=== PATIENT | female | born 1955 | race Caucasian/White ===

== ENCOUNTER → 2020-06-04 | Emergency (ER) | payer OTHER ==
[~2020-06-04] VITALS: Ht 167 cm; Wt 99.7 kg
[2020-06-04 16:40] VITALS: BP 129/57
[2020-06-04 17:04] LABS: BASOPHILS % (AUTO) 0 % (0-10); EOSINOPHILS % (AUTO) 1 % (0-10); HEMATOCRIT 42 % (35-52); HEMOGLOBIN 14.2 g/dL (11.5-16.0); LYMPHOCYTES # (AUTO) 3.6 10^3/uL (1.0-4.0); LYMPHOCYTES % (AUTO) 43 % (12-44); MEAN CORPUSCULAR HEMOGLOBIN 29 pg (25-34); MEAN CORPUSCULAR HGB CONC 34 g/dL (32-36); MEAN CORPUSCULAR VOLUME 87 fL (80-99); MEAN PLATELET VOLUME 11.1 fL (9.0-12.2); MONOCYTES % (AUTO) 11 % (0-12); NEUTROPHILS # (AUTO) 3.7 10^3/uL (1.8-7.8); NEUTROPHILS % (AUTO) 44 % (42-75); PLATELET COUNT 252 10^3/uL (130-400); WHITE BLOOD COUNT 8.3 10^3/uL (4.3-11.0)
[2020-06-04 17:12] LABS: CHLORIDE 101 MMOL/L (98-107); POTASSIUM 3.6 MMOL/L (3.6-5.0); SODIUM 135 MMOL/L (135-145)
[2020-06-04 17:13] LABS: CALCIUM 8.9 MG/DL (8.5-10.1)
[2020-06-04 17:15] LABS: GLUCOSE 93 MG/DL (70-105); TOTAL PROTEIN 7.4 GM/DL (6.4-8.2)
[2020-06-04 17:16] LABS: BILIRUBIN,TOTAL 0.4 MG/DL (0.1-1.0); CARBON DIOXIDE 24 MMOL/L (21-32)
[2020-06-04 17:18] LABS: ALKALINE PHOSPHATASE 62 U/L (40-136); GFR ESTIMATED > 60
[2020-06-04 17:19] LABS: BUN/CREATININE RATIO 18
[2020-06-04 17:21] LABS: ALANINE AMINOTRANSFERASE 19 U/L (0-55)
--- NOTE | 2020-06-04 17:31 | Diagnostic Imaging Report ---
INDICATION: COVID positive and labored breathing. Time of exam: 5:08 PM Correlation is made with prior chest from 03/12/2010. The heart size is normal. The pulmonary vascularity is unremarkable. The lungs are clear. No infiltrate, effusion or pneumothorax is detected. IMPRESSION: No acute cardiopulmonary process is detected. Dictated by: Dictated on workstation # [id number]
--- NOTE | 2020-06-04 18:29 | ED General ---
General Chief Complaint: Respiratory Problems Stated Complaint: LOW O2/FEVER/COVID + Nursing Triage Note: patient states covid positive since 05/25/2020. labored breathing with ambulation to room. patient states she tested oxygen at home, low oxygen reading at times. Nursing Sepsis Screen: No Definite Risk Source of Information: Patient Exam Limitations: No Limitations History of Present Illness Date Seen by Provider: Jun 04, 2020 Time Seen by Provider: 16:50 Initial Comments This 64-year-old woman with known COVID-19 presents to the emergency room with shortness of breath and reports of hypoxic measurements with her pulse oximeter at home. She became ill on May 23 and tested positive for COVID-19 on May 25. She has been self-monitoring her oxygen saturations and found levels in the upper 80s. She reports these always quickly recovered to the 90s with rest and time. When discussing this with the health department, she was encouraged to present to the ER for further assessment. Patient also has been under much stress recently as her daughter was killed in a auto accident. She did not attend the today. Allergies and Home Medications Allergies Coded Allergies: Codeine (Verified Allergy, Unknown, 02/15/08) Latex (Verified Allergy, Unknown, 02/15/08) Patient Home Medication List Home Medication List Reviewed: Yes Review of Systems Review of Systems Constitutional: no symptoms reported EENTM: no symptoms reported Respiratory: see HPI, cough, short of breath Cardiovascular: no symptoms reported Gastrointestinal: no symptoms reported Genitourinary: no symptoms reported : No Musculoskeletal: no symptoms reported Skin: no symptoms reported Psychiatric/Neurological: No Symptoms Reported Hematologic/Lymphatic: No Symptoms Reported Immunological/Allergic: no symptoms reported Past Caymaxj-Fxfopb-Zqopmi Hx Past Med/Social Hx: Reviewed Nursing Past Med/Soc Hx Patient Social History Alcohol Use: Denies Use Recreational Drug Use: No Smoking Status: Never a Smoker 2nd Hand Smoke Exposure: No Recent Foreign Travel: No Contact w/Someone Who Travel: No Recent Infectious Disease Expo: No Physical Abuse: No Sexual Abuse: No Mistreated: No Fear: No Past Medical History Surgeries: Yes Gallbladder, Hysterectomy Respiratory: Yes Asthma Cardiac: Yes High Cholesterol, Hypertension Neurological: Yes Headaches /Migraines : No Reproductive Disorders: No Gastrointestinal: No Musculoskeletal: No Endocrine: Yes Hypothyroidsim HEENT: No Cancer: No Psychosocial: No Physical Exam Vital Signs Vital Signs - First Documented 06/04/20 16:40 Temp 35.9 Pulse 77 Resp 20 B/P (MAP) 129/57 (81) Pulse Ox 95 O2 Delivery Room Air Capillary Refill : Less Than 3 Seconds Height, Weight, BMI Height: '" Weight: lbs. oz. kg; 35.00 BMI Method: General Appearance: No Apparent Distress, WD/WN HEENT: PERRL/EOMI, Normal ENT Inspection, Pharynx Normal Neck: Normal Inspection Respiratory: Lungs Clear, Normal Breath Sounds, No Accessory Muscle Use, No Respiratory Distress, Other (Mild tachypnea with exertion) Cardiovascular: Regular Rate, Rhythm, No Edema, No Murmur, Normal Peripheral Pulses Gastrointestinal: Normal Bowel Sounds, Non Tender, Soft Extremity: Normal Inspection, Non Tender, No Calf Tenderness, No Pedal Edema Neurologic/Psychiatric: Alert, Oriented x3, No Motor/Sensory Deficits, Normal Mood/Affect, color weigher II-XII Norm as Tested Skin: Normal Color, Warm/Dry Focused Exam Lactate Level 06/04/20 17:00: Lactic Acid Level 0.80 Lactic Acid Level Laboratory Tests Test 06/04/20 17:00 Lactic Acid Level 0.80 MMOL/L (0.50-2.00) Progress/Results/Core Measures Suspected Sepsis Recent Fever Within 48 Hours: No Infection Criteria Present: None New/Unexplained Altered Menta: No Sepsis Screen: No Definite Risk SIRS Temperature: Pulse: 77 Respiratory Rate: 20 Laboratory Tests 06/04/20 16:53: White Blood Count 8.3 Blood Pressure 129 /57 Mean: 81 06/04/20 17:00: Lactic Acid Level 0.80 Laboratory Tests 06/04/20 16:53: Creatinine 0.80, Platelet Count 252, Total Bilirubin 0.4 Results/Orders Lab Results Laboratory Tests Test 06/04/20 16:53 06/04/20 17:00 Range/Units White Blood Count 8.3 4.3-11.0 10^3/uL Red Blood Count 4.86 3.80-5.11 10^6/uL Hemoglobin 14.2 11.5-16.0 g/dL Hematocrit 42 35-52 % Mean Corpuscular Volume 87 80-99 fL Mean Corpuscular Hemoglobin 29 25-34 pg Mean Corpuscular Hemoglobin Concent 34 32-36 g/dL Red Cell Distribution Width 12.6 10.0-14.5 % Platelet Count 252 130-400 10^3/uL Mean Platelet Volume 11.1 9.0-12.2 fL Immature Granulocyte % (Auto) 0 % Neutrophils (%) (Auto) 44 42-75 % Lymphocytes (%) (Auto) 43 12-44 % Monocytes (%) (Auto) 11 0-12 % Eosinophils (%) (Auto) 1 0-10 % Basophils (%) (Auto) 0 0-10 % Neutrophils # (Auto) 3.7 1.8-7.8 10^3/uL Lymphocytes # (Auto) 3.6 1.0-4.0 10^3/uL Monocytes # (Auto) 1.0 0.0-1.0 10^3/uL Eosinophils # (Auto) 0.0 0.0-0.3 10^3/uL Basophils # (Auto) 0.0 0.0-0.1 10^3/uL Immature Granulocyte # (Auto) 0.0 0.0-0.1 10^3/uL D-Dimer 0.36 0.00-0.49 UG/ML Sodium Level 135 135-145 MMOL/L Potassium Level 3.6 3.6-5.0 MMOL/L Chloride Level 101 98-107 MMOL/L Carbon Dioxide Level 24 21-32 MMOL/L Anion Gap 10 5-14 MMOL/L Blood Urea Nitrogen 14 7-18 MG/DL Creatinine 0.80 0.60-1.30 MG/DL Estimat Glomerular Filtration Rate > 60 BUN/Creatinine Ratio 18 Glucose Level 93 70-105 MG/DL Calcium Level 8.9 8.5-10.1 MG/DL Corrected Calcium 8.9 8.5-10.1 MG/DL Total Bilirubin 0.4 0.1-1.0 MG/DL Aspartate Amino Transf (AST/SGOT) 24 5-34 U/L Alanine Aminotransferase (ALT/SGPT) 19 0-55 U/L Alkaline Phosphatase 62 40-136 U/L Lactate Dehydrogenase 186 125-220 U/L C-Reactive Protein High Sensitivity 5.48 H 0.00-0.50 MG/DL Total Protein 7.4 6.4-8.2 GM/DL Albumin 4.0 3.2-4.5 GM/DL Procalcitonin 0.02 <0.10 NG/ML Lactic Acid Level 0.80 0.50-2.00 MMOL/L My Orders Orders - KEVIN SOMMERS MD Cbc With Automated Diff (06/04/20 16:55) Comprehensive Metabolic Panel (06/04/20 16:55) Hs C Reactive Protein (06/04/20 16:55) Fibrin Degradation Products (06/04/20 16:55) Procalcitonin (Pct) (06/04/20 16:55) LDH (06/04/20 16:55) Lactic Acid Analyzer (06/04/20 16:55) Ed Iv/Invasive Line Start (06/04/20 16:55) Chest 1 View, Ap/Pa Only (06/04/20 16:55) Vital Signs/I&O 06/04/20 16:40 Temp 35.9 Pulse 77 Resp 20 B/P (MAP) 129/57 (81) Pulse Ox 95 O2 Delivery Room Air Capillary Refill : Less Than 3 Seconds Blood Pressure Mean: 81 Progress Note : Progress Note Patient was seen and examined. Labs were obtained were relatively unremarkable. Chest x-ray showed no infiltrates to suggest pneumonia. We did have the patient walk about the room for about a minute and tested her pulse ox immediately afterward. Her oxygen saturation ranged 90 to 92% on room air. At rest patient's oxygen saturation was in the mid 90s. Ultimately, patient appeared stable and not requiring hospitalization. She was discharged home with precautions to return. Diagnostic Imaging Diagonstic Imaging: Xray Plain Films/CT/US/NM/MRI: chest Comments NAME: VICKI KC [facility] REC#: [id number] PT STATUS: REG ER : 1955 PHYSICIAN: KEVIN SOMMERS MD ADMIT DATE: 06/04/20/ER Signed Date of Exam:06/04/20 CHEST 1 VIEW, AP/PA ONLY INDICATION: COVID positive and labored breathing. Time of exam: 5:08 PM Correlation is made with prior chest from 03/12/2010. The heart size is normal. The pulmonary vascularity is unremarkable. The lungs are clear. No infiltrate, effusion or pneumothorax is detected. IMPRESSION: No acute cardiopulmonary process is detected. Dictated by: Dictated on workstation # [id number] Dict: 06/04/20 1729 Trans: [id number] [facility] [id number] Interpreted by: ADRIANNE ROLAND MD Electronically signed by: ADRIANNE ROLAND MD 06/04/201831 Departure Impression Primary Impression: COVID-19 Disposition: 01 HOME, SELF-CARE Condition: Stable Departure-Patient Inst. Decision time for Depature: 18:25 Referrals: [facility] (PCP/Family) Primary Care Physician Patient Instructions: Coronavirus Disease 2019 (COVID-19) Overview Add. Discharge Instructions: Continue to drink plenty of clear liquids and take your supplements. Continue to exercise deep breathing and change positions often. Continue to monitor your oxygen saturations. If you are having persistent or recurrent measurements less than 90%, please contact your doctor or return to the emergency room. Call or return to care with any other questions or concerns. Consider changing the battery and your pulse-oximeter. All discharge instructions reviewed with patient and/or family. Voiced understanding. Copy Copies To 1: LIZETT HARRIS JOSHUA T MD Jun 04, 2020 18:29
== END ==
LOC: EDUNIT# 16:22 → ER 16:26
DX: U07.1 COVID-19 (principal); Z88.5 Allergy status to narcotic agent; Z91.040 Latex allergy status
CPT/HCPCS: 36415; 71045; 80053; 83605; 83615; 84145; 85025; 85379; 86141

== ENCOUNTER → 2020-09-20 | Outpatient (CLI) | payer OTHER ==
--- NOTE | 2020-09-20 09:07 | Diagnostic Imaging Report ---
INDICATION: Routine screening. Comparison is made with prior mammogram 07/04/2018. 2-D and 3-D bilateral screening mammography was performed with CAD. Scattered fibroglandular densities are identified bilaterally. The parenchymal pattern is stable. No mass or malignant appearing microcalcifications are seen. Axillae are unremarkable. IMPRESSION: BI-RADS Category 1 No mammographic features suspicious for malignancy are identified. ACR BI-RADS Category 1: Negative. Result letter will be mailed to the patient. Note: At least 10% of breast cancer is not imaged by mammography. Dictated by: Dictated on workstation # [id number]
== END ==
LOC: RAD 07:30
PROVIDERS: ATTEND Physician Assistant
DX: Z12.31 Encounter for screening mammogram for malignant neoplasm of breast (principal)
CPT/HCPCS: 77063; 77067

== ENCOUNTER → 2023-05-19 | Outpatient (CLI) | payer MEDICARE, OTHER ==
--- NOTE | 2023-05-20 08:51 | Diagnostic Imaging Report ---
INDICATION: Routine screening. Comparison is made with prior mammogram from 09/20/2020 and 07/04/2018. 2-D and 3-D bilateral screening mammography was performed with CAD. Scattered fibroglandular densities are identified bilaterally. There is a nodular density in the upper and outer aspect of the left breast at mid depth which appears be slightly larger on today's study. Additional views recommended. Right breast is unremarkable. No malignant-appearing microcalcifications are identified. Axillae are unremarkable. IMPRESSION: Left breast density. Additional views recommended for further evaluation. ACR BI-RADS Category 0: Incomplete. (Needs additional imaging evaluation). Result letter will be mailed to the patient. Note: At least 10% of breast cancer is not imaged by mammography. BI-RADS 0 Dictated by: Dictated on workstation # [id number]
== END ==
LOC: RAD 15:28
PROVIDERS: ATTEND Family Medicine
DX: Z12.31 Encounter for screening mammogram for malignant neoplasm of breast (principal); N63.20 Unspecified lump in the left breast, unspecified quadrant
CPT/HCPCS: 77063; 77067